=== PATIENT | male | born 1995 | race Two or more races ===

== ENCOUNTER 2020-07-14 15:27 | Emergency (ER) | payer SELFPAY ==
[~2020-07-14] VITALS: Ht 170.2 cm; Wt 74.0 kg
[2020-07-14 15:28] VITALS: BP 133/86
--- NOTE | 2020-07-14 15:57 | NUR ---
PLATE [employer]ASS [employer]ER: LUIS COLLECTED AND SENT FROM TRIAGE.
== END 2020-07-14 16:36 | disposition home or self-care (01) ==
LOC: ED 16:30
DX: Z11.3 Encounter for screening for infections with a predominantly sexual mode of transmission (principal)
CPT/HCPCS: 87491; 87591; 99283

== ENCOUNTER 2020-08-27 12:46 | Emergency (ER) | payer SELFPAY ==
[~2020-08-27] VITALS: Ht 167.6 cm; Wt 75.3 kg
[2020-08-27 12:54] VITALS: BP 124/78
--- NOTE | 2020-08-27 13:20 | NUR ---
Assumed care of patient. Reports anxiety, but not restless or combative. No needs at this time.
--- NOTE | 2020-08-27 13:54 | NUR ---
Patient/Caregiver given discharge instructions and they have confirmed that they understand the instructions. Patient ambulatory with steady gait.
== END 2020-08-27 13:56 | disposition home or self-care (01) ==
LOC: ED 13:45
DX: F41.1 Generalized anxiety disorder (principal)
CPT/HCPCS: 99283

== ENCOUNTER 2021-01-19 21:56 | Emergency (ER) | payer SELFPAY ==
[~2021-01-19] VITALS: Ht 167.6 cm; Wt 77.2 kg
[2021-01-20 03:16] VITALS: BP 121/73
== END 2021-01-20 03:18 | disposition home or self-care (01) ==
LOC: ED 22:00
DX: H92.02 Otalgia, left ear (principal); J06.9 Acute upper respiratory infection, unspecified; J40 Bronchitis, not specified as acute or chronic; Z20.822 Contact with and (suspected) exposure to COVID-19; R94.31 Abnormal electrocardiogram [ECG] [EKG]; R07.89 Other chest pain
CPT/HCPCS: 71046; 93005; 99285; U0003; U0005